=== PATIENT | female | born 1950 | race Caucasian/White ===

== ENCOUNTER → 2016-09-25 | Outpatient (CLI) | payer MEDICARE, BC ==
--- NOTE | 2016-09-28 13:56 | RADIOLOGY REPORT PS360 ---
History and Indications: Hypertension, diabetes, hyperlipidemia, family history chest pain and abnormal EKG. Procedure: Patient received 0.4 mg of Lexiscan, resting heart rate was 72 beats resting blood pressure 183/99, with Lexiscan maximum heart rate achieved was 86 bpm which is less than 85% of the maximum predicted heart rate and a blood pressure was 150/87. With Lexiscan patient complained of shortness of breath, stomach discomfort but no chest pain. Electrocardiogram: Resting electrocardiogram showed sinus rhythm, with Lexiscan there is less than 1.[address] segment depression noted from the baseline EKG. The EKG portion of the Lexiscan is nondiagnostic. Cardiac stress and resting SPECT images: Cardiac stress and the suspect images were obtained using technetium 99 Myoview 10.2 mCi at rest, and 30.1 mCi at stress, gated SPECT further analysis of segmental wall motion and calculation of the ejection fraction also done. Cardiac stress and the suspect images show decreased tracer activity in the inferior wall which improves on the resting images suggestive of reversible ischemia in that area. Computer derived ejection fraction is 52% with moderate inferior and posterobasal wall hypokinesis. Right ventricle is mildly enlarged with normal contractility. Conclusion: 1. The EKG portion of the Lexiscan is nondiagnostic secondary to baseline abnormal EKG. 2. Scintigraphic evidence of reversible ischemia involving the inferior and posterobasal wall. Right ventricle is mildly enlarged with normal contractility. 3. Abnormal Lexiscan Myoview study.
== END ==
LOC: RAD 11:49
DX: R07.9 Chest pain, unspecified (principal); R94.31 Abnormal electrocardiogram [ECG] [EKG]
CPT/HCPCS: A9502; J2785